=== PATIENT | male | born 1995 | race Two or more races ===

== ENCOUNTER 2019-07-16 09:54 | Emergency (ER) | payer MEDICAID ==
[~2019-07-16] VITALS: Ht 170.2 cm; Wt 62.0 kg
[2019-07-16] MEDS ORDERED: CEPHALEXIN MONOHYDRATE 500 MG CAPSULE PO ONE (11:00)
[2019-07-16] MEDS ORDERED: SULFAMETHOX/TRIMETH DS 800-160 MG/TABLET PO ONE (11:00)
[2019-07-16 11:26] VITALS: BP 103/60
== END 2019-07-16 11:23 | disposition home or self-care (01) ==
LOC: EMS 09:58
DX: L03.116 Cellulitis of left lower limb (principal)

== ENCOUNTER 2020-06-24 11:53 | Emergency (ER) | payer MEDICAID ==
[~2020-06-24] VITALS: Ht 170.2 cm; Wt 63.6 kg
[2020-06-24] MEDS ORDERED: LIDOCAINE 1% 10 ML VIAL INJ ONE (13:30)
[2020-06-24] MEDS ORDERED: PERTUSS(ACELL),DIPH,TET VAC/PF 0.5 ML VIAL IM ONE (13:30)
[2020-06-24] MEDS ORDERED: BACITRACIN 0.9 GM PACKET OINTMENT TP ONE (14:45)
[2020-06-24 15:07] VITALS: BP 130/66
== END 2020-06-24 15:18 | disposition home or self-care (01) ==
LOC: EMS 11:57
DX: S01.21XA Laceration without foreign body of nose, initial encounter (principal); W54.0XXA Bitten by dog, initial encounter; Y93.89 Activity, other specified; Y92.89 Other specified places as the place of occurrence of the external cause; Y99.8 Other external cause status
CPT/HCPCS: 12011; 90471; 90715; 99283; J3490